=== PATIENT | male | born 1975 | race American Indian/Alaskan Native ===

== ENCOUNTER 2018-11-19 00:35 | Emergency (ER) | payer OTHER ==
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
[2018-11-19 02:40] LABS: Hematocrit 40.2 % (35.5-45.6); Hemoglobin 13.4 gm/dl (11.8-15.2); Mean Corpuscular HGB Conc 33 % (32-34); Mean Corpuscular Volume 99 fl (84-94); Platelet Count 281 K/mm3 (140-440); Red Blood Count 4.07 M/mm3 (3.65-5.03); Red Cell Distribution Width 15.1 % (13.2-15.2)
[2018-11-19 03:06] LABS: Alanine Aminotransferase 13 units/L (7-56); Albumin 4.4 g/dL (3.9-5); BUN/Creatinine Ratio 5; Blood Urea Nitrogen 5 mg/dL (9-20); Calcium 9.6 mg/dL (8.4-10.2); Hemolysis Index 5
[2018-11-19 09:33] LABS: Bilirubin,Urine NEG (Negative); Blood,Urine NEG (Negative); Color,Urine Yellow (Yellow); Mucus,Urine FEW /HPF; Protein,Urine <15 mg/dL mg/dL (Negative); Urobilinogen,Urine < 2.0 mg/dL (<2.0)
[2018-11-19 09:41] LABS: Amphetamine Screen,Urine PRESUMPTIVE NEGATIVE; Benzodiazepines Screen,Urine PRESUMPTIVE NEGATIVE; Cocaine Screen,Urine PRESUMPTIVE NEGATIVE; Methadone Screen,Urine PRESUMPTIVE NEGATIVE; Opiate Screen,Urine PRESUMPTIVE NEGATIVE
[2018-11-19 10:04] LABS: Cannabinoid Screen,Urine PRESUMPTIVE POSITIVE
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
[2018-11-19] MEDS: ZOLOFT PO SCH (17:35)
[2018-11-19] MEDS: MINIPRESS PO SCH (23:04)
[2018-11-20] MEDS: ZOLOFT PO SCH (11:00)
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
[2018-11-20] MEDS: MINIPRESS PO SCH (22:04)
[2018-11-21] MEDS: ZOLOFT PO SCH (10:50)
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
[2018-11-21] MEDS: MINIPRESS PO SCH (21:50)
[2018-11-22] MEDS: ZOLOFT PO SCH (12:00)
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
[2018-11-22] MEDS: MINIPRESS PO SCH (21:35)
[2018-11-23] MEDS ORDERED: IBUPROFEN PO ONE ×2 (03:17)
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
[2018-11-23] MEDS ORDERED: NON-FORMULARY (Atorvastatin 10 MG) PO SCH (11:00)
[2018-11-23] MEDS: NEURONTIN PO SCH ×2 (11:06→21:52)
[2018-11-23] MEDS: HCTZ PO SCH (11:06)
[2018-11-23] MEDS ORDERED: NEURONTIN ONE (11:06)
[2018-11-23] MEDS: ZOLOFT PO SCH (11:11)
[2018-11-23] MEDS ORDERED: CATAPRES PO ONE (14:35)
[2018-11-23] MEDS: MINIPRESS PO SCH (21:52)
[2018-11-24] MEDS: HCTZ PO SCH (10:38)
[2018-11-24] MEDS: NEURONTIN PO SCH (10:38)
[2018-11-24] MEDS: ZOLOFT PO SCH (10:40)
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
[2018-11-24 17:52] VITALS: BP 178/86
== END 2018-11-24 17:54 ==
LOC: ED 00:35 → EEVIPCON 00:35 → ED 11-24 17:54
DX: F32.9 Major depressive disorder, single episode, unspecified (principal); F43.10 Post-traumatic stress disorder, unspecified; F12.90 Cannabis use, unspecified, uncomplicated
CPT/HCPCS: 36415; 80053; 80307; 81001; 85027; 99285; A9270; G0480; 80320